=== PATIENT | female | born 1990 | race Caucasian/White ===

== ENCOUNTER 2019-10-23 19:10 | Emergency (ER) | payer OTHER ==
[~2019-10-23] VITALS: Ht 160 cm; Wt 68.0 kg
[2019-10-23] MEDS ORDERED: XANAX XR2 MG (19:48)
[2019-10-23] MEDS ORDERED: ZOLOFT100 MG (19:49)
== END 2019-10-23 21:17 | disposition home or self-care (01) ==
LOC: ER 19:10
DX: S40.011A Contusion of right shoulder, initial encounter (principal); S50.01XA Contusion of right elbow, initial encounter; S60.221A Contusion of right hand, initial encounter; W18.39XA Other fall on same level, initial encounter; Y93.89 Activity, other specified; Y92.59 Other trade areas as the place of occurrence of the external cause; Y99.8 Other external cause status